=== PATIENT | male | born 1970 | race Hispanic/Latino ===

== ENCOUNTER 2023-08-02 03:22 | Emergency (ER) ==
[2023-08-02] MEDS ORDERED: CEFTRIAXONE 1000 MG/VIAL ONE (04:08)
[2023-08-02] MEDS ORDERED: KETOROLAC 30 MG/ML INJ ONE (04:08)
[2023-08-02] MEDS ORDERED: MORPHINE 4 MG/ML SYR ONE (04:08)
[2023-08-02] MEDS ORDERED: ONDANSETRON 4 MG/2 ML VIAL ONE (04:09)
[2023-08-02] MEDS ORDERED: NA CHLORIDE 0.9% 1,000 ML ONE ×2 (04:09→05:43)
[2023-08-02 04:11] LABS: Absolute Lymphocytes (CBC) 1.1 K/uL (0.7-4.9); Hematocrit 45.8 % (39.6-49.0); Lymphocytes % 10.2 % (15.3-44.8); MCV 90.1 fL (80-100); MPV 8.1 fL (7.6-11.3); Platelets 177 thou/uL (152-406); RBC Red Blood Cell Count 5.08 M/uL (4.33-5.43)
[2023-08-02 04:21] LABS: Specific Gravity 1.019 (1.005-1.030); Urine Bilirubin NEGATIVE (Negative); Urine Blood Negative (Negative); Urine Clarity Clear (Clear); Urine Color Light-Yellow (Yellow); Urine Glucose NEGATIVE (Negative); Urine Protein NEGATIVE (Negative); Urine Urobilinogen 1+ (Normal); Urine pH 6.5 (5.0-7.0)
[2023-08-02 04:33] LABS: Albumin 3.7 g/dL (3.4-5.0); Bilirubin Total 0.6 mg/dL (0.2-1.0); Potassium 3.8 mEq/L (3.5-5.1); Protein, Total 7.2 g/dL (6.4-8.2)
[2023-08-02] MEDS ORDERED: TAMSULOSIN 0.4 MG SR CAP ONE (05:11)
--- NOTE | 2023-08-02 06:27 | EDPHYS ---
Physician Documentation [facility] Name: Antonino Allan Age: 52 yrs Sex: Male : 1970 Arrival Date: 08/02/2023 Time: 03:22 Bed 18 Private MD: [place]IL[place] Physician Randal Sparrow HPI: 08/02 04:47 This 52 yrs old Male presents to ER via Ambulatory with complaints of Possible dm Kidney Stone. 04:47 The patient presents with abdominal pain in the left lower quadrant. Onset: The dm symptoms/episode began/occurred just prior to arrival. The patient complains of pain in the left mid back. The pain radiates to the left mid back. Onset: The symptoms/episode began/occurred this morning, today. Modifying factors: The symptoms are alleviated by nothing. the symptoms are aggravated by nothing. Associated signs and symptoms: Pertinent positives: nausea. The symptoms radiate to the left flank. Modifying factors: The symptoms are alleviated by nothing, the symptoms are aggravated by nothing. Historical: - Allergies: 03:53 No Known Allergies; pf1 - PMHx: 03:53 None; pf1 - PSHx: 03:53 None; pf1 - Immunization history:: Adult Immunizations not up to date, Client reports having NOT received the Covid vaccine. Last tetanus immunization: > 10 years ago Flu vaccine is not up to date. - Social history:: Smoking status: Patient/guardian denies using tobacco, the patient reports quitting approximately 1 years ago, Patient uses alcohol, occasionally. - Family history:: not pertinent. ROS: 04:47 Constitutional: Negative for fever, chills, and weight loss, Eyes: Negative for injury, dm pain, redness, and discharge, ENT: Negative for injury, pain, and discharge, Neck: Negative for injury, pain, and swelling, Cardiovascular: Negative for chest pain, palpitations, and edema, Respiratory: Negative for shortness of breath, cough, wheezing, and pleuritic chest pain, : Negative for injury, bleeding, discharge, and swelling, MS/Extremity: Negative for injury and deformity, Skin: Negative for injury, rash, and discoloration, Neuro: Negative for headache, weakness, numbness, tingling, and seizure, Psych: Negative for depression, anxiety, suicide ideation, homicidal ideation, and hallucinations, Allergy/Immunology: Negative for hives, rash, and allergies, Endocrine: Negative for neck swelling, polydipsia, polyuria, polyphagia, and marked weight changes, Hematologic/Lymphatic: Negative for swollen nodes, abnormal bleeding, and unusual bruising. 04:47 Abdomen/GI: Positive for abdominal pain, abdominal distension. 04:47 Back: Positive for flank pain, on the left. Exam: 04:47 Constitutional: This is a well developed, well nourished patient who is awake, alert, dm and in no acute distress. Head/Face: Normocephalic, atraumatic. Eyes: Pupils equal round and reactive to light, extra-ocular motions intact. Lids and lashes normal. Conjunctiva and sclera are non-icteric and not injected. Cornea within normal limits. Periorbital areas with no swelling, redness, or edema. ENT: Nares patent. No nasal discharge, no septal abnormalities noted. Tympanic membranes are normal and external auditory canals are clear. Oropharynx with no redness, swelling, or masses, exudates, or evidence of obstruction, uvula midline. Mucous membranes moist. Neck: Trachea midline, no thyromegaly or masses palpated, and no cervical lymphadenopathy. Supple, full range of motion without nuchal rigidity, or vertebral point tenderness. No Meningismus. Chest/axilla: Normal chest wall appearance and motion. Nontender with no deformity. No lesions are appreciated. Cardiovascular: Regular rate and rhythm with a normal S1 and S2. No gallops, murmurs, or rubs. Normal PMI, no JVD. No pulse deficits. Respiratory: Lungs have equal breath sounds bilaterally, clear to auscultation and percussion. No rales, rhonchi or wheezes noted. No increased work of breathing, no retractions or nasal flaring. Abdomen/GI: Soft, non-tender, with normal bowel sounds. No distension or tympany. No guarding or rebound. No evidence of tenderness throughout. Male : Normal genitalia with no discharge or lesions. Skin: Warm, dry with normal turgor. Normal color with no rashes, no lesions, and no evidence of cellulitis. MS/ Extremity: Pulses equal, no cyanosis. Neurovascular intact. Full, normal range of motion. Neuro: Awake and alert, GCS 15, oriented to person, place, time, and situation. Cranial nerves II-XII grossly intact. Motor strength 5/5 in all extremities. Sensory grossly intact. Cerebellar exam normal. Normal gait. Psych: Awake, alert, with orientation to person, place and time. Behavior, mood, and affect are within normal limits. 04:47 Back: pain, that is mild, ROM is normal, normal spinal alignment noted, CVA tenderness, that is moderate, is noted on the left, vertebral tenderness, is not appreciated, muscle spasm, is not present. Vital Signs: 03:38 BP 148 / 103; Pulse 81; Resp 16; Temp 98.2; Pulse Ox 100% on R/A; Weight 88.45 kg; pf1 Height 5 ft. 8 in. ; Pain 8/10; 04:06 BP 138 / 93; Pulse 88; Resp 18; Pulse Ox 97% on R/A; Pain 6/10; sg5 05:01 BP 130 / 93; Pulse 68; Resp 16; Pulse Ox 99% on R/A; Pain 3/10; sg5 05:38 BP 124 / 88; Pulse 70; Resp 16; Pulse Ox 98% on R/A; sg5 06:34 BP 128 / 96; Pulse 72; Resp 16; Pulse Ox 99% on R/A; sg5 07:00 BP 126 / 84; Pulse 65; Resp 16 S; Temp 98(TE); Pulse Ox 98% on R/A; aa5 03:38 Body Mass Index 29.65 (88.45 kg, 172.72 cm) pf1 03:38 Pain Scale: Adult pf1 04:06 Pain Scale: Adult sg5 05:01 Pain Scale: Adult sg5 MDM: 03:36 Patient medically screened. dm 04:54 Differential diagnosis: nephrolithiasis, diverticulitis, bowel obstruction, gastritis, dm non-specific abd pain. Data reviewed: vital signs, nurses notes, lab test result(s), radiologic studies, CT scan. Consideration of Admission/Observation Escalation of care including admission/observation considered. I considered the following discharge prescriptions or medication management in the emergency department Medications were administered in the Emergency Department. See MAR. Independent interpretation of the following test(s) in the Emergency Department EKG: See my EKG interpretation above. Test considered but Not performed: Ultrasound no renal usg. Care significantly affected by the following chronic conditions: none. 08/02 03:36 Order name: CBC with Diff; Complete Time: 05:12 [facility] 08/02 03:36 Order name: CMP; Complete Time: 05:12 [facility] 08/02 03:36 Order name: Lipase; Complete Time: 05:12 [facility] 08/02 03:36 Order name: Urinalysis w/ reflexes; Complete Time: 05:12 [facility] 08/02 03:36 Order name: CT Stone Protocol [facility] 08/02 03:36 Order name: IV Saline Lock; Complete Time: 03:52 [facility] 08/02 03:36 Order name: Labs collected and sent; Complete Time: 03:52 dm Administered Medications: 04:05 Drug: NS 0.9% IV 1000 ml Route: IV; Rate: 1 bolus; Site: right antecubital; sg5 05:30 Follow up: IV Status: Completed infusion sg5 04:05 Drug: Ondansetron IVP 4 mg Route: IVP; Site: right antecubital; sg5 04:05 Drug: morphine IVP or IV 4 mg Route: IVP; Infused Over: 4 mins; Site: right antecubital;sg5 04:06 Drug: Ketorolac IVP 30 mg Route: IVP; Site: right antecubital; sg5 04:06 Drug: Rocephin IV 1 grams Route: IV; Rate: per protocol; Site: right antecubital; sg5 05:01 Drug: Flomax PO 0.4 mg Route: PO; sg5 07:00 Follow up: Response: No adverse reaction aa5 05:38 Drug: NS 0.9% IV 1000 ml Route: IV; Rate: 1 bolus; Site: right antecubital; sg5 07:00 Follow up: IV Status: Completed infusion; IV Intake: 1000ml aa5 Disposition Summary: 08/02/23 06:26 Discharge Ordered Location: Home dm Problem: new dm Symptoms: have improved dm Condition: Stable dm Diagnosis - Hydronephrosis with renal and ureteral calculous obstruction - 3.3 mm left dm proximal(08/02/23 07:16) Followup: dm - With: Private Physician - When: 2 - 3 days - Reason: Recheck today's complaints, Continuance of care, Re-evaluation by your physician Followup: dm - With: - When: 2 - 3 days - Reason: Recheck today's complaints, Re-evaluation by your physician Discharge Instructions: - Discharge Summary Sheet dm - Kidney Stones dm - Kidney Stones, Wgyr-jy-[id number] dm - Hydronephrosis dm - Dietary Guidelines to Help Prevent Kidney Stones dm Forms: - Medication Reconciliation Form dm - Thank You Letter dm - Antibiotic Education dm - Prescription Opioid Use dm - Patient Portal Instructions dm - Leadership Thank You Letter dm - Work release form iw Prescriptions: - Flomax 0.4 mg Oral capsule - take 1 capsule by ORAL route At bedtime; 30 capsule; Refills: 0, Product dm Selection Permitted - acetaminophen-codeine 300-30 mg Oral tablet - take 2 tablet by ORAL route every 6 hours; 20 tablet; Refills: 0, Product dm Selection Permitted - Zofran 4 mg Oral Tablet - take 1 tablet by ORAL route every 12 hours As needed; 20 tablet; Refills: 0, dm Product Selection Permitted - Cipro 500 mg Oral Tablet - take 1 tablet by ORAL route every 12 hours for 7 days; 14 tablet; Refills: 0, [facility] Product Selection Permitted Signatures: Dispatcher [employer] EDRandal Garza MD MD cha Finley, Pamala RN RN pf1 Elaine Borrero RN RN sg5 Marianna Whitaker RN aa5 Corrections: (The following items were deleted from the chart) 07:16 06:26 Hydronephrosis with renal and ureteral calculous obstruction dm chaidez
--- NOTE | 2023-08-02 06:27 | ER ---
Nurse's Notes [facility] Name: Antonino Allan Age: 52 yrs Sex: Male : 1970 Arrival Date: 08/02/2023 Time: 03:22 Bed 18 Private MD: Diagnosis: Hydronephrosis with renal and ureteral calculous obstruction-3.3 mm left proximal Presentation: 08/02 03:38 Chief complaint: Patient states: left flank pain that radiates to LLQ with nausea and pf1 vomiting,onset . Patient denies any vomiting within the past 24 hours. Patient stated was seen at a clinic in [place] on , had a small amount of blood in urine and was prescribed Naproxen 375mg. Patient stated took Naproxen 375mg at 0100. 03:38 Coronavirus screen: Vaccine status: Patient reports being unvaccinated. Client denies pf1 travel out of the [place] in the last 14 days. At this time, the client does not indicate any symptoms associated with coronavirus-19. Ebola Screen: Patient negative for fever greater than or equal to 101.5 degrees Fahrenheit, and additional compatible Ebola Virus Disease symptoms. Initial Sepsis Screen: Does the patient meet any 2 criteria? No. Patient's initial sepsis screen is negative. Does the patient have a suspected source of infection? No. Patient's initial sepsis screen is negative. Risk Assessment: Do you want to hurt yourself or someone else? Patient reports no desire to harm self or others. 03:38 Method Of Arrival: Ambulatory pf1 03:38 Acuity: KAYLIE 3 pf1 Historical: - Allergies: 03:53 No Known Allergies; pf1 - PMHx: 03:53 None; pf1 - PSHx: 03:53 None; pf1 - Immunization history:: Adult Immunizations not up to date, Client reports having NOT received the Covid vaccine. Last tetanus immunization: > 10 years ago Flu vaccine is not up to date. - Social history:: Smoking status: Patient/guardian denies using tobacco, the patient reports quitting approximately 1 years ago, Patient uses alcohol, occasionally. - Family history:: not pertinent. Screenin:06 [facility] ED Fall Risk Assessment (Adult) History of falling in the last 3 months, sg5 including since admission No falls in past 3 months (0 pts). Abuse screen: Denies threats or abuse. Nutritional screening: No deficits noted. Tuberculosis screening: No symptoms or risk factors identified. Assessment: 04:06 General: Appears uncomfortable, Behavior is calm, cooperative, appropriate for age. sg5 Pain: Complains of pain in left flank to lower abdomen Pain does not radiate. Pain currently is 8 out of 10 on a pain scale. Neuro: Level of Consciousness is awake, alert, obeys commands, Oriented to person, place, time, situation, Appropriate for age. Cardiovascular: Capillary refill < 3 seconds Patient's skin is warm and dry. Respiratory: Airway is patent Trachea midline Respiratory effort is even, unlabored, Respiratory pattern is regular, symmetrical. GI: Abdomen is round non-distended, Bowel sounds present X 4 quads. Abd is soft X 4 quads Abd is non tender X 4 quads. : Reports pain flank(s). EENT: No signs and/or symptoms were reported regarding the EENT system. Derm: No signs and/or symptoms reported regarding the dermatologic system. Musculoskeletal: No signs and/or symptoms reported regarding the musculoskeletal system. 07:00 Reassessment: Patient is alert, oriented x 3, equal unlabored respirations, skin aa5 warm/dry/pink. Discharge on hold per Dr. Sparrow at this time. . 07:33 Reassessment: Patient is alert, oriented x 3, equal unlabored respirations, skin aa5 warm/dry/pink. 07:33 Reassessment: Patient states feeling better. Patient states symptoms have improved. aa5 Vital Signs: 03:38 BP 148 / 103; Pulse 81; Resp 16; Temp 98.2; Pulse Ox 100% on R/A; Weight 88.45 kg; pf1 Height 5 ft. 8 in. ; Pain 8/10; 04:06 BP 138 / 93; Pulse 88; Resp 18; Pulse Ox 97% on R/A; Pain 6/10; sg5 05:01 BP 130 / 93; Pulse 68; Resp 16; Pulse Ox 99% on R/A; Pain 3/10; sg5 05:38 BP 124 / 88; Pulse 70; Resp 16; Pulse Ox 98% on R/A; sg5 06:34 BP 128 / 96; Pulse 72; Resp 16; Pulse Ox 99% on R/A; sg5 07:00 BP 126 / 84; Pulse 65; Resp 16 S; Temp 98(TE); Pulse Ox 98% on R/A; aa5 03:38 Body Mass Index 29.65 (88.45 kg, 172.72 cm) pf1 03:38 Pain Scale: Adult pf1 04:06 Pain Scale: Adult sg5 05:01 Pain Scale: Adult sg5 ED Course: 03:26 Patient arrived in ED. kj1 03:35 Randal Sparrow MD is Attending Physician. dm 03:52 Elaine Borrero, KISHORE is Primary Nurse. sg5 03:53 Triage completed. pf1 04:06 Patient has correct armband on for positive identification. Bed in low position. Call sg5 light in reach. Side rails up X 1. Adult w/ patient. Valuables Left with patient. 04:06 Inserted saline lock: 20 gauge in right antecubital area, using aseptic technique. sg5 Blood collected. 04:31 CT Stone Protocol In Process Unspecified. EDMS 06:26 Fausto Fowler MD is Referral Physician. dm 06:28 No provider procedures requiring assistance completed. IV discontinued. sg5 Administered Medications: 04:05 Drug: NS 0.9% IV 1000 ml Route: IV; Rate: 1 bolus; Site: right antecubital; sg5 05:30 Follow up: IV Status: Completed infusion sg5 04:05 Drug: Ondansetron IVP 4 mg Route: IVP; Site: right antecubital; sg5 04:05 Drug: morphine IVP or IV 4 mg Route: IVP; Infused Over: 4 mins; Site: right antecubital;sg5 04:06 Drug: Ketorolac IVP 30 mg Route: IVP; Site: right antecubital; sg5 04:06 Drug: Rocephin IV 1 grams Route: IV; Rate: per protocol; Site: right antecubital; sg5 05:01 Drug: Flomax PO 0.4 mg Route: PO; sg5 07:00 Follow up: Response: No adverse reaction aa5 05:38 Drug: NS 0.9% IV 1000 ml Route: IV; Rate: 1 bolus; Site: right antecubital; sg5 07:00 Follow up: IV Status: Completed infusion; IV Intake: 1000ml aa5 Medication: 07:33 VIS not applicable for this client. aa5 Intake: 07:00 IV: 1000ml; Total: 1000ml. aa5 Outcome: 06:26 Discharge ordered by . dm 07:33 Discharged to home ambulatory, with family. aa5 07:33 Condition: stable 07:33 Discharge instructions given to patient, Instructed on discharge instructions, follow up and referral plans. medication usage, Demonstrated understanding of instructions, follow-up care, medications, Prescriptions given X 4. 07:35 Patient left the ED. aa5 Signatures: Dispatcher [employer] EDVA Randal Sparrow MD MD cha Calderon, Audri, RN RN aa5 Abby Mcmahon1 Stacy Craft RN RN pf1 Elaine Borrero RN RN sg5
--- NOTE | 2023-08-02 07:14 | RAD REPORT ---
EXAM DESCRIPTION: CTStone Protocol - 08/02/2023 4:30 am CLINICAL HISTORY: ABD PAIN COMPARISON: No comparisons TECHNIQUE: CT of the abdomen and pelvis was performed. All CT scans are performed using dose optimization technique as appropriate and may include automated exposure control or mA/KV adjustment according to patient size. FINDINGS: Lower chest: No acute abnormality. Liver: Hepatomegaly. Biliary: No biliary ductal dilatation. Stomach: No significant focal abnormality. Duodenum: No significant focal abnormality. Pancreas: No significant abnormality. Spleen: No significant abnormality. Adrenal: No suspicious lesions. Kidney/ureter: Mild left-sided hydronephrosis secondary to a 3 mm stone in the left proximal ureter. Retroperitoneum: No retroperitoneal adenopathy. Vascular: No aneurysm. Bowel: No significant focal abnormality. Normal appendix . Peritoneum: No ascites or free air. Fat containing left inguinal hernia. Bladder: Grossly unremarkable. Reproductive: No adnexal masses. Bones: No acute fracture. Other: n/a IMPRESSION: Mild left-sided hydronephrosis secondary to a 3 mm stone in the left proximal ureter.
== END 2023-08-02 07:35 | disposition home or self-care (01) ==
LOC: ER 03:22
DX: N13.2 Hydronephrosis with renal and ureteral calculous obstruction (principal)
CPT/HCPCS: 96361; 85025; 36415; 81003; 83690; 80053; 76377; 74176; 96375; 96374; 99284; J2405; J7030 ×2; J0696